=== PATIENT | female | born 1970 | race Caucasian/White ===

== ENCOUNTER 2018-04-11 21:53 | Observation (INO) ==
[2018-04-11] MEDS ORDERED: *HR* LORazepam 2 MG/ML VIAL IVP ONE (22:23)
[2018-04-11] MEDS ORDERED: 0.9 % Sodium Chloride 1,000 ML IVC ONE (22:23)
[2018-04-11 22:48] LABS: Basophils % 0.5 %; Eosinophils # 0.2 K/mcL (0.0-0.6); Eosinophils % 1.8 %; Hematocrit 37.9 % (35.3-44.9); Hemoglobin 12.5 g/dL (11.5-15.4); Immature Granulocytes % 0.5 % (0-4); Lymphocytes # 3.2 K/mcL (0.6-4.6); Lymphocytes % 37.4 %; Mean Corpuscular Hemoglobin 28.8 pg (28.0-33.3); Mean Corpuscular Volume 87.3 fL (83.0-100.0); Mean Platelet Volume 8.7 fL (9.4-12.4); Monocytes # 0.6 K/mcL (0.0-1.3); Monocytes % 7.4 %; Neutrophils # 4.6 K/mcL (1.6-8.9); Platelet Count 275 K/mcL (140-400); Red Blood Count 4.34 M/mcL (3.82-4.97); Red Cell Distribution Width 13.3 % (11.5-14.5); Segmented Neutrophils % 52.4 %
[2018-04-11 22:56] LABS: ABG Base Excess -1 mEq/L (-2 to 3); ABG HCO3 23 mEq/L (21-27); ABG Oxygen Saturation 98 % (95-98); ABG PCO2 34 mmHg (35-45); ABG PH 7.43 pH Units (7.32-7.45); ABG PO2 99 mmHg (85-104); ABG TCO2 24 mEq/L (20-26)
[2018-04-11 23:05] LABS: BUN/Creatinine Ratio 18 (6-26); Blood Urea Nitrogen 31 mg/dL (6-20); Calcium 8.1 mg/dL (8.6-10.3); Carbon Dioxide 25 mEq/L (23-29); Chloride 103 mEq/L (98-107); Glucose 205 mg/dL (70-105); Osmolality,Calculated 294 (280-300); Potassium 3.9 mEq/L (3.5-5.1); Sodium 136 mEq/L (136-145); eGFR For Non-African Americans 32 (> 60)
[2018-04-11 23:06] LABS: Troponin I < 0.03 ng/mL (< 0.04)
[2018-04-11 23:40] LABS: Bilirubin,Urine Negative (Negative); Blood,Urine Moderate (Negative); Clarity,Urine Slightly Cloudy (Clear); Color,Urine Yellow (Yellow); Glucose,Urine (UA) 500 mg/dL (Normal); Ketones,Urine Trace mg/dL (Negative); Leukocyte Esterase,Urine Negative (Negative); Nitrite,Urine Negative (Negative); Protein,Urine >=300 mg/dL (Neg-Trace); Specific Gravity,Urine 1.025 (1.010-1.025); Urobilinogen,Urine Normal (Normal)
[2018-04-11 23:51] LABS: Bacteria,Urine Few per hpf (None-Few); Squamous Epithelial Cell,Urine Moderate per lpf (None-Few)
[2018-04-11 23:52] LABS: Hyaline Casts,Urine Few per lpf (None-Few)
[2018-04-11 23:55] LABS: Amphetamine Screen,Urine Negative ng/mL (Cutoff=1000); Barbiturate Screen,Urine Negative ng/mL (Cutoff=200); Benzodiazepines Screen,Urine Negative ng/mL (Cutoff=200); Cannabinoid Screen,Urine Negative ng/mL (Cutoff = 50); Cocaine Screen,Urine Negative ng/mL (Cutoff= 300); Opiate Screen,Urine Negative ng/mL (Cutoff=300); Phencyclidine Screen,Urine Negative ng/mL (Cutoff=25)
[2018-04-12] MEDS ORDERED: Ketorolac 30 MG/ML VIAL IVP ONE (00:05)
[2018-04-12] MEDS ORDERED: *HR* Labetalol 20 MG/4 ML SYRINGE IVP ONE ×2 (00:05→01:45)
--- NOTE | 2018-04-12 00:09 | Emergency Department Note ---
Disposition Clinical Impression: Hypertensive urgency, Anxiety, Hypertension, uncontrolled Diabetes Qualifiers: Diabetes mellitus type: type 2 Diabetes mellitus senior care insulin use: unspecified senior care insulin use status Diabetes mellitus complication status: with unspecified complications Qualified Code(s): E11.8 - Type 2 diabetes mellitus with unspecified complications Disposition: Admitted As Inpatient Condition: Fair Prescriptions: Labetalol HCl 100 mg PO BID #60 tablet Referrals: Cha Cooper CNP [Primary Care Provider] - (Call Saturday to discuss this ER visit and arrange follow-up.) Forms: ED Satisfaction Letter Time of Disposition: 01:56 General Adult HPI - General Chief complaint: ED General Medical Stated complaint: MULTIPLE COMPLAINTS Time Seen by Provider: 04/11/18 22:10 Source: patient, family Mode of arrival: private vehicle Limitations: no limitations Nursing Notes Reviewed: Yes Vital Signs Reviewed: Yes - History of Present Illness HPI Narrative: Patient presents to the emergency department playing of an abrupt onset of numbness to the left side of her face and left side of her tong and some numbness to the right arm while she was at [facility] [place] She is also complaining of some headache which she describes a pressure feeling. She has history of hypertension and has not been taking medicines for several months. She says she just does not feel right and is very anxious and concerned about it. Pt Subjective Complaint: Headache and numbness Onset (ago): Just [employer] Location: head, face Pain Scale: 8 Quality: aching Consistency: constant, now resolved (Patient states the numbness is resolved whe n I do my history and physical.) Improves with: nothing Worsens with: nothing Associated symptoms: Reports: headaches Treatments Prior to Arrival: none - Related Data Previous Rx's Medication Instructions Recorded Labetalol HCl 100 mg PO BID #60 tablet 04/12/18 Allergies Allergy/AdvReac Type Severity Reaction Status Date / Time codeine AdvReac Anaphylaxis Verified 04/11/18 21:55 lisinopril AdvReac Hives Verified 04/12/18 00:24 Penicillins AdvReac Swelling Verified 04/11/18 21:55 of Lip/Tongue/Throat All systems ED: reviewed and negative except as stated. Constitutional: Denies: fever, chills ENT ED: Denies: ear pain, throat pain, congestion Cardiovascular: Denies: chest pain, palpitations Respiratory: Denies: cough, dyspnea Gastrointestinal: Reports: nausea. Denies: abdominal pain, vomiting, diarrhea Genitourinary: Denies: urgency, dysuria, frequency Musculoskeletal: Denies: back pain, neck pain Integumentary: Denies: rash Neurological: Reports: headache, numbness Past Medical History - Past Medical History Attestation: Yes The following information was validated with the patient. Source: patient, old records reviewed, obtained from family, nursing notes reviewed Medical history: Reports: hypertension, migraine Psychiatric history: Reports: anxiety - Social History Smoking Status: Never smoker Smokeless Tobacco Status: No Alcohol use: Reports: none Drug use: Reports: none Physical Exam - General Limitations: no limitations General appearance: alert, anxious - Head Head exam: atraumatic, normocephalic, normal inspection - Eye Eye exam: Present: normal appearance, PERRL, EOMI. Absent: scleral icterus, conjunctival injection - ENT ENT exam: normal exam, normal oropharynx, mucous membranes moist, TM's normal bilaterally, normal external ear exam - Neck Neck exam: Present: normal inspection, full ROM, trachea midline. Absent: tenderness - Chest Chest inspection: Present: normal inspection, symmetric chest wall rise. Absent: tenderness - Respiratory Respiratory exam: Present: normal lung sounds bilaterally. Absent: respiratory distress, wheezes - Cardiovascular Cardiovascular exam: Present: regular rate, normal rhythm, normal heart sounds - Abdominal Exam Abdominal exam: Present: soft, Non-Tender, normal bowel sounds - Extremities Exam Extremities exam: Present: normal inspection, pedal edema (Patient has some edema to bilateral lower extremity's but family member states been there for a year and is not any worse than usual) - Neurological Exam Neurological exam: Present: alert, oriented X3, CN II-XII intact, normal gait, reflexes normal. Absent: motor sensory deficit - Psychiatric Psychiatric exam: Present: anxious - Skin Skin exam: Present: warm, dry. Absent: rash Course Course Narrative: Patient presents with symptoms of headache and numbness to the left side of her face and numbness to her right arm. This is superimposed on elevated blood pressure. However the whole presentation is confused by patient embellishment. She is very anxious. When I ask her to smile she quivers both sides of her mouth which in my opinion is deliberate. I had to tell her that she was doing it on purpose and that she needed to show me all of her teeth and then she was abruptly able to show me all of her teeth. With vigorous neurologic examination I found no focal neurologic deficit at all. Patient had said her numbness had resolved by the time she got to the ER. I am to do a hypertensive workup on the patient. I will give her some Ativan to help calm her nerves. We will check the labs and the scans. Disposition will be based on diagnostic results and reevaluation. - Reevaluation(s) Reevaluation #1: Labs came back showing an elevated BUN/creatinine. I do not know how these are compared to baseline because I have no previous labs in the system. Troponin is negative. No ischemia on EKG. Urinalysis shows no signs of infection. Imaging studies are unremarkable. Patient continued to complain of headache and blood pressure was high. At one point it was 220/124. I went in and gave her 20 of labetalol and got her pressure down to 190 systolic. It crept back up so I gave another dose of labetalol IV. Patient continued complaining of nausea and feeling anxious and I was initially going to discharge her to home but then she started having some vomiting and at this point I think this is really all blood pressure related and although I do not see indications of end organ damage, I think I cannot send the patient home if she is in the vomiting will be able take her blood pressure medicines. I am and admitted to the hospital and hydrate her and get her blood pressure was better controlled. I have already spoken with the hospitalist was accepted the patient for admission. Time: 01:54 - Consultations Consultation #1: Dr. Boyle, hospitalist - I discussed the case with the hospitalist. He has accepted the patient for admission. Time: 01:55 Vital Signs Temperature 97.7 F 04/11/18 21:56 Pulse Rate 91 04/11/18 21:56 Respiratory Rate 20 04/11/18 21:56 Blood Pressure 201/122 04/11/18 21:56 O2 Sat by Pulse Oximetry 97 04/11/18 21:56 Temperature 98.8 F 04/11/18 23:48 Pulse Rate 86 04/11/18 23:48 Respiratory Rate 20 04/11/18 23:48 Blood Pressure 206/111 04/11/18 23:48 O2 Sat by Pulse Oximetry 98 04/11/18 23:48 Oxygen Delivery Oxygen Delivery Room Air Medical Decision Making - Medical Records Medical records reviewed: Yes I reviewed the patient's medical records. - Lab Data Lab results reviewed: Yes I reviewed the patient's lab results. Result diagrams: 04/11/18 22:39 04/11/18 22:39 Lab Results 04/11/18 04/11/18 04/11/18 Range/Units 21:58 22:39 22:39 WBC 8.7 (4.3-11.1) K/mcL RBC 4.34 (3.82-4.97) M/mcL Hgb 12.5 (11.5-15.4) g/dL Hct 37.9 (35.3-44.9) % MCV 87.3 (83.0-100.0) fL MCH 28.8 (28.0-33.3) pg MCHC 33.0 (31.6-35.5) g/dL RDW 13.3 (11.5-14.5) % Plt Count 275 (140-400) K/mcL MPV 8.7 L (9.4-12.4) fL Immature Gran % 0.5 (0-4) % Seg Neutrophils % 52.4 % Lymphocytes % 37.4 % Monocytes % 7.4 % Eosinophils % 1.8 % Basophils % 0.5 % Neutrophils # 4.6 (1.6-8.9) K/mcL Lymphocytes # 3.2 (0.6-4.6) K/mcL Monocytes # 0.6 (0.0-1.3) K/mcL Eosinophils # 0.2 (0.0-0.6) K/mcL Basophils # 0.0 (0.0-0.2) K/mcL Sample Site ABG pH (7.32-7.45) pH Units ABG pCO2 (35-45) mmHg ABG pO2 (85-104) mmHg ABG HCO3 (21-27) mEq/L ABG Total CO2 (20-26) mEq/L ABG O2 Saturation (95-98) % ABG Base Excess (-2 to 3) mEq/L Rommel Test O2 Delivery Device Sodium 136 (136-145) mEq/L Potassium 3.9 (3.5-5.1) mEq/L Chloride 103 (98-107) mEq/L Carbon Dioxide 25 (23-29) mEq/L BUN 31 H (6-20) mg/dL Creatinine 1.71 H (0.60-1.20) mg/dL Est GFR ( Amer) 39 L (> 60) Est GFR (Non-Af Amer) 32 L (> 60) BUN/Creatinine Ratio 18 (6-26) Glucose 205 H (70-105) mg/dL POC Glucose 181 H (70-99) mg/dL Calculated Osmolality 294 (280-300) Calcium 8.1 L (8.6-10.3) mg/dL Troponin I < 0.03 (< 0.04) ng/mL B-Natriuretic Peptide (Less than 100) pg/mL Urine Color (Yellow) Urine Clarity (Clear) Urine pH (5.0-8.0) pH Units Ur Specific [place] (1.010-1.025) Urine Protein (Neg-Trace) mg/dL Urine Glucose (UA) (Normal) mg/dL Urine Ketones (Negative) mg/dL Urine Blood (Negative) Urine Nitrite (Negative) Urine Bilirubin (Negative) Urine Urobilinogen (Normal) mg/dL Ur Leukocyte Esterase (Negative) Urine Microscopic RBC (0-3) per hpf Urine Microscopic WBC (0-3) per hpf Ur Squamous Epith Cells (None-Few) per lpf Urine Bacteria (None-Few) per hpf Hyaline Casts (None-Few) per lpf Ur Culture Indicated? (NO) Urine Opiates Screen (Xuuuzf=705) ng/mL Ur Oxycodone Screen (Cutoff= 100) ng/mL Ur Barbiturates Screen (Miqysz=350) ng/mL Ur Phencyclidine Scrn (Cutoff=25) ng/mL Ur Amphetamines Screen (Efafjs=8793) ng/mL U Benzodiazepines Scrn (Ivlran=897) ng/mL Urine Cocaine Screen (Cutoff= 300) ng/mL U Marijuana (THC) Screen (Cutoff = 50) ng/mL Ur Drug Screen Interp 04/11/18 04/11/18 04/11/18 Range/Units 22:39 22:52 23:30 WBC (4.3-11.1) K/mcL RBC (3.82-4.97) M/mcL Hgb (11.5-15.4) g/dL Hct (35.3-44.9) % MCV (83.0-100.0) fL MCH (28.0-33.3) pg MCHC (31.6-35.5) g/dL RDW (11.5-14.5) % Plt Count (140-400) K/mcL MPV (9.4-12.4) fL Immature Gran % (0-4) % Seg Neutrophils % % Lymphocytes % % Monocytes % % Eosinophils % % Basophils % % Neutrophils # (1.6-8.9) K/mcL Lymphocytes # (0.6-4.6) K/mcL Monocytes # (0.0-1.3) K/mcL Eosinophils # (0.0-0.6) K/mcL Basophils # (0.0-0.2) K/mcL Sample Site R Radial ABG pH 7.43 (7.32-7.45) pH Units ABG pCO2 34 L (35-45) mmHg ABG pO2 99 (85-104) mmHg ABG HCO3 23 (21-27) mEq/L ABG Total CO2 24 (20-26) mEq/L ABG O2 Saturation 98 (95-98) % ABG Base Excess -1 (-2 to 3) mEq/L Rommel Test Positive O2 Delivery Device Room Air Sodium (136-145) mEq/L Potassium (3.5-5.1) mEq/L Chloride (98-107) mEq/L Carbon Dioxide (23-29) mEq/L BUN (6-20) mg/dL Creatinine (0.60-1.20) mg/dL Est GFR ( Amer) (> 60) Est GFR (Non-Af Amer) (> 60) BUN/Creatinine Ratio (6-26) Glucose (70-105) mg/dL POC Glucose (70-99) mg/dL Calculated Osmolality (280-300) Calcium (8.6-10.3) mg/dL Troponin I (< 0.04) ng/mL B-Natriuretic Peptide 105 H (Less than 100) pg/mL Urine Color (Yellow) Urine Clarity (Clear) Urine pH (5.0-8.0) pH Units Ur Specific [place] (1.010-1.025) Urine Protein (Neg-Trace) mg/dL Urine Glucose (UA) (Normal) mg/dL Urine Ketones (Negative) mg/dL Urine Blood (Negative) Urine Nitrite (Negative) Urine Bilirubin (Negative) Urine Urobilinogen (Normal) mg/dL Ur Leukocyte Esterase (Negative) Urine Microscopic RBC (0-3) per hpf Urine Microscopic WBC (0-3) per hpf Ur Squamous Epith Cells (None-Few) per lpf Urine Bacteria (None-Few) per hpf Hyaline Casts (None-Few) per lpf Ur Culture Indicated? (NO) Urine Opiates Screen Negative (Abbtwt=390) ng/mL Ur Oxycodone Screen Negative (Cutoff= 100) ng/mL Ur Barbiturates Screen Negative (Sngcpo=224) ng/mL Ur Phencyclidine Scrn Negative (Cutoff=25) ng/mL Ur Amphetamines Screen Negative (Ewqidm=4396) ng/mL U Benzodiazepines Scrn Negative (Jhcnjr=591) ng/mL Urine Cocaine Screen Negative (Cutoff= 300) ng/mL U Marijuana (THC) Screen Negative (Cutoff = 50) ng/mL Ur Drug Screen Interp See Below 04/11/18 Range/Units 23:31 WBC (4.3-11.1) K/mcL RBC (3.82-4.97) M/mcL Hgb (11.5-15.4) g/dL Hct (35.3-44.9) % MCV (83.0-100.0) fL MCH (28.0-33.3) pg MCHC (31.6-35.5) g/dL RDW (11.5-14.5) % Plt Count (140-400) K/mcL MPV (9.4-12.4) fL Immature Gran % (0-4) % Seg Neutrophils % % Lymphocytes % % Monocytes % % Eosinophils % % Basophils % % Neutrophils # (1.6-8.9) K/mcL Lymphocytes # (0.6-4.6) K/mcL Monocytes # (0.0-1.3) K/mcL Eosinophils # (0.0-0.6) K/mcL Basophils # (0.0-0.2) K/mcL Sample Site ABG pH (7.32-7.45) pH Units ABG pCO2 (35-45) mmHg ABG pO2 (85-104) mmHg ABG HCO3 (21-27) mEq/L ABG Total CO2 (20-26) mEq/L ABG O2 Saturation (95-98) % ABG Base Excess (-2 to 3) mEq/L Rommel Test O2 Delivery Device Sodium (136-145) mEq/L Potassium (3.5-5.1) mEq/L Chloride (98-107) mEq/L Carbon Dioxide (23-29) mEq/L BUN (6-20) mg/dL Creatinine (0.60-1.20) mg/dL Est GFR ( Amer) (> 60) Est GFR (Non-Af Amer) (> 60) BUN/Creatinine Ratio (6-26) Glucose (70-105) mg/dL POC Glucose (70-99) mg/dL Calculated Osmolality (280-300) Calcium (8.6-10.3) mg/dL Troponin I (< 0.04) ng/mL B-Natriuretic Peptide (Less than 100) pg/mL Urine Color Yellow (Yellow) Urine Clarity Slightly Cloudy A (Clear) Urine pH 7.0 (5.0-8.0) pH Units Ur Specific [place] 1.025 (1.010-1.025) Urine Protein >=300 H (Neg-Trace) mg/dL Urine Glucose (UA) 500 H (Normal) mg/dL Urine Ketones Trace H (Negative) mg/dL Urine Blood Moderate H (Negative) Urine Nitrite Negative (Negative) Urine Bilirubin Negative (Negative) Urine Urobilinogen Normal (Normal) mg/dL Ur Leukocyte Esterase Negative (Negative) Urine Microscopic RBC 5-15 H (0-3) per hpf Urine Microscopic WBC 5-15 H (0-3) per hpf Ur Squamous Epith Cells Moderate H (None-Few) per lpf Urine Bacteria Few (None-Few) per hpf Hyaline Casts Few (None-Few) per lpf Ur Culture Indicated? NO (NO) Urine Opiates Screen (Kdutdq=765) ng/mL Ur Oxycodone Screen (Cutoff= 100) ng/mL Ur Barbiturates Screen (Adtgyj=824) ng/mL Ur Phencyclidine Scrn (Cutoff=25) ng/mL Ur Amphetamines Screen (Crzcze=2932) ng/mL U Benzodiazepines Scrn (Ggccbu=402) ng/mL Urine Cocaine Screen (Cutoff= 300) ng/mL U Marijuana (THC) Screen (Cutoff = 50) ng/mL Ur Drug Screen Interp - Radiology Data Radiology results reviewed: Yes I reviewed the patient's radiology results. - EKG Data EKG #1 EKG attestation: Yes I reviewed and interpreted this EKG. EKG results narrative: Twelve-lead EKG performed at 20 2:32 PM ordered, reviewed and a by ED physician shows sinus rhythm at a rate of 87. Normal axis. Good hour progression across cordon. No acute ischemic changes. Intervals are within normal limits.
[2018-04-12] MEDS ORDERED: Metoclopramide 10 MG/2 ML VIAL IVP ONE (02:02)
[2018-04-12] MEDS ORDERED: Naloxone 0.4 MG/ML INJ IVP PRN (03:29)
[2018-04-12] MEDS: 0.9 % Sodium Chloride 1,000 ML IVC SCH ×2 (04:28→11:39)
[2018-04-12] MEDS ORDERED: 0.45 % Sodium Chloride w/KCl 20 MEQ/1,000 ML MLS IVC SCH (15:45)
--- NOTE | 2018-04-12 15:52 | Internal Med History&Physical ---
Date of Encounter: 04/12/18 Time of Encounter: 15:05 Assessment and Plan (1) Hypertensive urgency Current visit: Yes Status: Acute She was given labetalol IV in emergency room and started on oral labetalol. Blood pressure has improved and neurologic symptoms have resolved. (2) Acute focal neurological deficit Current visit: Yes Status: Acute Possibly related to hypertensive urgency. No focal deficit is found at present time. (3) Azotemia Current visit: Yes Status: Acute (4) Edema Current visit: No Status: Acute Will order echocardiogram to further evaluate. BN peptide was minimally elevated at 105. Qualifiers: Edema type: unspecified Qualified Code(s): R60.9 - Edema, unspecified (5) Microscopic hematuria Current visit: Yes Status: Acute Workup in the past has shown no acute pathology. Internal Medicine - H&P: HPI Chief complaint: Hypertension, acute neurologic deficits History of present illness: Ms. Meng is a 47 year old female who came to emergency room stating she had experienced face and arm numbness, dysarthria, diplopia, bilateral hand weakness and sensation of feeling "cold" while at a local grocery store checkout. She c dara to emergency room and was evaluated and found to have blood pressure of 201/122. She was treated for hypertensive urgency and admitted to [facility] floor for ongoing care needs. She states she feels improved now and back to her baseline. She reports she was seen at a local urgent care a couple hours before going to the grocery store because her eyes had been swollen for 3-4 days. She was told the swelling was due to hypertension but no intervention was given. She has history of hypertension but has not been on medication for approximately 2 months. She reports blood pressure readings at home are typically 150-160 systolic and 90 diastolic. She denies [place] heart failure angina DVT or pulmonary embolus. She has had frequent edema of her legs for approximately 8 months. She states she has seen a surgical dental assistant in the past year does not recall an echocardiogram being done. Her neurologic history is negative for previous similar neurologic deficits. She denies history of large distribution strokes or seizures. Past Med Surg Social Fam HX - Past Medical History Medical history: hypertension, migraine Psychiatric history: anxiety - Past Surgical History Surgical History: appendectomy Additional surgical history: tubal ligation 1992 - Social History Smoking Status: Never smoker Smokeless Tobacco Status: No Alcohol use: none Drug use: none - Family History Sister Adopted: [place]: Marylin Fitzpatrick Age: 50 Family Member Ethnicity: Non- Living Status: Still Living Hx Family Cardiac Disorders: Yes (Stroke, cardiac stents) Hx Family Cancer: Yes (Uterine cancer, hysterectomy) Hx Family Genitourinary Disorders: No Hx Family Endocrine Disorder: No Hx Family Musculoskeletal Disorders: No Hx Family Neuromuscular Disorders: No Hx Family Neurologic Disorders: No Hx Family HEENT Disorders: No Hx Family Autoimmune Disorders: No Hx Family Reproductive Disorders: Yes Internal Medicine - H&P: Meds Labetalol HCl 100 mg PO BID #60 tablet 04/12/18 [Rx] Allergy/AdvReac Type Severity Reaction Status Date / Time codeine AdvReac Anaphylaxis Verified 04/11/18 21:55 lisinopril AdvReac Hives Verified 04/12/18 00:24 Penicillins AdvReac Swelling Verified 04/11/18 21:55 of Lip/Tongue/Throat All Systems PM: A 10-system review of systems was performed and is negative for pertinent findings except as documented above in the HPI. Review of systems: Gen.: She states her weight has increased approximately 30 pounds in the past 6 months. She believes this is primarily due to fluid retention. Cardiovascular: As per history of present illness Respiratory: She smoked from approximately age [age] up to 2 packs per day. She denies known chronic lung disease and has not been tested for sleep apnea. : She has had asymptomatic hematuria and has seen a urologist in the past. She reports cystoscopy was unremarkable in 2017. Etiology of hematuria has not been determined with certainty. She denies known kidney stones, chronic kidney disease, or other known kidney or bladder disorders. Neurologic: As per history of present illness Endocrine: She was diagnosed with DM 2 approximately 2015. She states it is diet control. She denies known thyroid disease or hyperlipidemia. Hematology/oncology: She denies blood disorders cancers or anemia Psychiatric: She denies anxiety depression or other mental health issues. [place] skeletal: She denies arthritis gout or other bone joint or muscle disorders. - Constitutional Vitals: Temp Pulse Resp BP Pulse Ox 98.5 F 84 18 148/79 97 04/12/18 14:54 04/12/18 14:54 04/12/18 14:54 04/12/18 14:54 04/12/18 14:54 Exam: Gen.: She is a well-developed overweight female resting comfortably in bed who appears in no acute distress HEENT: Head is atraumatic and normocephalic. Eyes: EOMI. There is no scleral icterus. Mouth: Mucosa is moist. Neck: Supple and nontender. There is no thyromegaly or adenopathy noted. Heart: Regular without murmurs gallops or ectopics Lungs: No wheezes or crackles are heard. Abdomen: Soft and nontender. No masses or guarding are noted. Extremities: There is no cyanosis or clubbing noted. She has trace to 1+ edema of the anterior lower cuevas bilaterally, slightly more on the right than the l eft. Dorsalis pedis and posterior tibial pulses are trace to 1+ palpable bilaterally. Neurologic: Mental status: She is talkative and a good historian. Cranial nerves: Smile is symmetric. Forehead wrinkles bilaterally. Tongue protrudes midline. EOMI. Motor: There is no pronator drift. Cerebellar: Finger to nose is intact bilaterally. Skin: Warm and dry Internal Med - H&P Results - Labs CBC & Chem 7: 04/11/18 22:39 04/11/18 22:39 Labs: Short CBC 04/11/18 Range/Units 22:39 WBC 8.7 (4.3-11.1) K/mcL Hgb 12.5 (11.5-15.4) g/dL Hct 37.9 (35.3-44.9) % Plt Count 275 (140-400) K/mcL Neutrophils # 4.6 (1.6-8.9) K/mcL BMP 04/11/18 22:39 Sodium 136 Potassium 3.9 Chloride 103 Carbon Dioxide 25 BUN 31 H Creatinine 1.71 H Glucose 205 H Calcium 8.1 L Cardiac Enzymes 04/11/18 Range/Units 22:39 Troponin I < 0.03 (< 0.04) ng/mL Urine 04/11/18 Range/Units 23:31 Urine Color Yellow (Yellow) Urine Clarity Slightly Cloudy A (Clear) Urine pH 7.0 (5.0-8.0) pH Units Ur Specific [place] 1.025 (1.010-1.025) Urine Protein >=300 H (Neg-Trace) mg/dL Urine Glucose (UA) 500 H (Normal) mg/dL - ABG Interpretation ABG results: 04/11/18 22:52 ABG pH 7.43 ABG pCO2 34 L ABG pO2 99 ABG HCO3 23 ABG Total CO2 24 ABG O2 Saturation 98 ABG Base Excess -1 - Impressions ITS Impressions Chest X-Ray 04/11/18 22:22 IMPRESSION: 1. No acute cardiopulmonary disease. D/ / Henry Zuniga MD / Henry Zuniga MD Interpreting Provider: Henry Zuniga MD Head CT 04/11/18 22:22 IMPRESSION: No acute intracranial abnormality. D/ / Angle Leonard Cha, MD / Angle Leonard Cha, MD Interpreting Provider: Angle Leonard Cha, MD
[2018-04-13 06:42] VITALS: BP 151/77
[2018-04-13 06:56] LABS: Basophils % 0.4 %; Eosinophils # 0.2 K/mcL (0.0-0.6); Eosinophils % 2.1 %; Hematocrit 33.7 % (35.3-44.9); Hemoglobin 10.9 g/dL (11.5-15.4); Immature Granulocytes % 0.4 % (0-4); Lymphocytes # 2.7 K/mcL (0.6-4.6); Lymphocytes % 34.1 %; Mean Corpuscular HGB Conc 32.3 g/dL (31.6-35.5); Mean Corpuscular Volume 89.6 fL (83.0-100.0); Mean Platelet Volume 8.7 fL (9.4-12.4); Monocytes # 0.7 K/mcL (0.0-1.3); Monocytes % 8.4 %; Neutrophils # 4.4 K/mcL (1.6-8.9); Platelet Count 234 K/mcL (140-400); Red Blood Count 3.76 M/mcL (3.82-4.97); Red Cell Distribution Width 13.5 % (11.5-14.5); Segmented Neutrophils % 54.6 %
[2018-04-13 07:22] LABS: Albumin 2.2 g/dL (3.5-5.7); Albumin/Globulin Ratio 0.8 (1.1-2.2); Bilirubin,Total 0.2 mg/dL (0.3-1.0); Calcium 7.6 mg/dL (8.6-10.3); Globulin 2.7 g/dL (2.4-3.5); Potassium 4.1 mEq/L (3.5-5.1); Total Protein 4.9 g/dL (6.4-8.9)
[2018-04-13 07:30] LABS: Thyroid Stimulating Hormone 1.654 mcIU/mL (0.340-5.600)
[2018-04-13 08:29] LABS: Estimated Average Glucose 171 mg/dl; Hemoglobin A1C 7.6 %
[2018-04-13] MEDS ORDERED: Acetaminophen 325 MG TABLET PO ONE (10:24)
--- NOTE | 2018-04-13 10:43 | Discharge Summary ---
Orders not resulted at time of discharge: Pending orders 04/11/18 22:21 EKG [ECG 12 lead ECG] [ECG] Stat 04/12/18 15:38 EV carotid duplex imaging BI Routine 04/12/18 15:39 EV echocardiogram Routine Date of Encounter: 04/13/18 Time of Encounter: 10:30 - Discharge Diagnosis (1) Hypertensive urgency Priority: Primary Status: Resolved (2) Acute focal neurological deficit Priority: Secondary Status: Resolved (3) Azotemia Priority: Secondary Status: Acute (4) Edema Priority: Secondary Status: Acute Qualifiers: Edema type: unspecified Qualified Code(s): R60.9 - Edema, unspecified (5) Microscopic hematuria Priority: Secondary Status: Chronic Hospital course: Ms. Meng is a 47 year old female who came to emergency room stating she had experienced face and arm numbness, dysarthria, diplopia, bilateral hand weakness and sensation of feeling "cold" while at a local grocery store checkout. She came to emergency room and was evaluated and found to have blood pressure of 201/122. She was treated for hypertensive urgency and admitted to [facility] for ongoing care needs. Initial orders were written by the emergency room physician. I saw her on April 12 and performed a history and physical. She was given IV labetalol in emergency room and started on oral labetalol. Her blood pressure returned to a safe range but still slightly above desirable level. She had complete resolution of neurologic deficits by the time I saw her and there was no recurrence. When I saw her April 13 she felt stable for discharge home. She will be prescribed Toprol-XL 100 mg daily. Her PCP can monitor blood pressure and adjust medications as needed. Hemoglobin A1c return slightly above desirable level at 7.6%. Her PCP can monitor and treat as needed. Azotemia improved minimally with BUN and creatinine decreased to 29 and 1.65 respectively on day of discharge with estimated GFR 33. Her PCP can monitor this. She wished to follow with a new PCP. She will see Melissa Jain CNP at [facility] within 1 week. - Time Spent with Patient Total time spent providing and/or coordinating discharge services: - Discharge Medications Prescriptions: Metoprolol Succinate 100 mg PO DAILY #30 tab.er.24h Home Medications: Metoprolol Succinate 100 mg PO DAILY #30 tab.er.24h 04/13/18 [Rx] Allergies/Adverse Reactions: Allergy/AdvReac Type Severity Reaction Status Date / Time codeine AdvReac Anaphylaxis Verified 04/11/18 21:55 lisinopril AdvReac Hives Verified 04/12/18 00:24 Penicillins AdvReac Swelling Verified 04/11/18 21:55 of Lip/Tongue/Throat Date of admission: 04/12/18 02:18 Primary care physician: Melissa Jain CNP - Constitutional Vitals: Temp Pulse Resp BP Pulse Ox 98.1 F 93 16 151/77 93 04/13/18 06:39 04/13/18 06:39 04/13/18 06:39 04/13/18 06:39 04/13/18 06:39 - Patient Status Disposition: Home, Self-Care Condition: Fair - Discharge Instructions Follow Up With: Melissa Jain CNP [Advanced Practice Nurse] - 1 week - Diet and Activity Activity: resume usual activities as tolerated Diet: diabetic diet
--- NOTE | 2018-04-14 15:30 | Electrocardiograph Report ---
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
== END 2018-04-13 11:39 | disposition home or self-care (01) ==
LOC: INPPIK 21:53 → EMEROOPIK 21:53 → INPPIK 04-12 02:57
PROVIDERS: ADMIT Emergency Medicine; ATTEND Internal Medicine